=== PATIENT | male | born 1980 | race Caucasian/White ===

== ENCOUNTER 2017-04-20 23:51 | Emergency (ER) | payer SELFPAY ==
[~2017-04-20] VITALS: Ht 180.3 cm; Wt 86.0 kg
[2017-04-21] MEDS ORDERED: NORCO 5/3251 TABLET PO (00:51)
[2017-04-21] MEDS ORDERED: MOTRIN600 MG PO (00:51)
[2017-04-21] MEDS ORDERED: PEN-VEE K,VEET500 MG PO (00:51)
[2017-04-21 01:03] VITALS: BP 134/79
== END 2017-04-21 01:18 | disposition home or self-care (01) ==
LOC: EME 23:51 → EXP 23:51
DX: K08.89 Other specified disorders of teeth and supporting structures (principal)
CPT/HCPCS: 99281; 99283